=== PATIENT | female | born 1950 | race Caucasian/White ===

== ENCOUNTER → 2016-07-28 | Outpatient (CLI) | payer OTHER | LOC: BMCIMAGING 12:45 | PROVIDERS: ATTEND Internal Medicine | DX: Z12.31 Encounter for screening mammogram for malignant neoplasm of breast (principal) | CPT/HCPCS: G0202 ==

== ENCOUNTER 2017-07-28 18:09 | Emergency (ER) | payer OTHER ==
--- NOTE | 2017-07-28 18:59 | EDPHY ---
H & P Stated Complaint: fell hiking 5 days ago on river trip/l flank/back pain/doc wants cat scan Time Seen by Provider: 07/28/17 18:49 HPI/ROS: CHIEF COMPLAINT: Left flank pain HISTORY OF PRESENT ILLNESS: The patient is a 67-year-old female who fell on a hike 5 days ago. She landed on her left CVA region. She has had pain in that region ever since although it is gradually improving. Today she saw her primary doctor who recommended she come to the ER for a CT scan. She has not had any hematuria. She denies bony pain. She denies weakness or numbness. REVIEW OF SYSTEMS: Constitutional: denies: chills, fever, recent illness, recent injury EENTM: denies: blurred vision, double vision, nose congestion Respiratory: denies: cough, shortness of breath Cardiac: denies: chest pain, irregular heart rate, lightheadedness, palpitations Gastrointestinal/Abdominal: denies: abdominal pain, diarrhea, nausea, vomiting, blood streaked stools Genitourinary: denies: dysuria, frequency, hematuria, pain Musculoskeletal: See HPI Skin: denies: lesions, rash, jaundice, bruising Neurological: denies: headache, numbness, paresthesia, tingling, dizziness, weakness Hematologic/Lymphatic: denies: blood clots, easy bleeding, easy bruising Immunologic/allergic: denies: HIV/AIDS, transplant EXAM: GENERAL: Well-appearing, well-nourished and in no acute distress. HEAD: Atraumatic, normocephalic. EYES: Pupils equal round and reactive to light, extraocular movements intact, sclera anicteric, conjunctiva are normal. ENT: TMs normal, nares patent, oropharynx clear without exudates. Moist mucous membranes. NECK: Normal range of motion, supple without lymphadenopathy or JVD. LUNGS: Breath sounds clear to auscultation bilaterally and equal. No wheezes rales or rhonchi. HEART: Regular rate and rhythm without murmurs, rubs or gallops. ABDOMEN: Soft, nontender, normoactive bowel sounds. No guarding, no rebound. No masses appreciated. BACK: Mild left CVA tenderness, no bruising or swelling, no spinal tenderness, step-offs or deformities EXTREMITIES: Normal range of motion, no pitting or edema. No clubbing or cyanosis. NEUROLOGICAL: Cranial nerves II through XII grossly intact. Normal speech, normal gait. 5/5 strength, normal movement in all extremities, normal sensation PSYCH: Normal mood, normal affect. SKIN: Warm, dry, normal turgor, no visible rashes or lesions. Source: Patient Exam Limitations: No limitations - Personal History Current Tetanus/Diphtheria Vaccine: Yes - Medical/Surgical History Hx Asthma: No Hx Chronic Respiratory Disease: No Hx Diabetes: No Hx Cardiac Disease: No Hx Renal Disease: No Hx Cirrhosis: No Hx Alcoholism: No Hx HIV/AIDS: No Hx Splenectomy or Spleen Trauma: No Other PMH: denies - Family History Significant Family History: No pertinent family hx - Social History Smoking Status: Never smoked Alcohol Use: Sober Drug Use: None Constitutional: Initial Vital Signs Temperature (C) 36.7 C 07/28/17 18:15 Heart Rate 88 07/28/17 18:15 Respiratory Rate 18 07/28/17 18:15 Blood Pressure 152/96 H 07/28/17 18:15 O2 Sat (%) 97 07/28/17 18:15 O2 Delivery Mode Room Air Allergies/Adverse Reactions: No Known Allergies Allergy (Unverified 07/28/17 18:14) Home Medications: Medication Instructions Recorded LORazepam 07/28/17 Levothyroxine 07/28/17 Medical Decision Making - Diagnostics Imaging Results: Imaging Impressions Abdomen CT 07/28/17 18:56 Impression: 1. Nondisplaced left L1 through L3 and possible nondisplaced right T8 transverse process fractures. Nodular enhancement in the posterior dome of the liver, incompletely characterized on this single phase study, which could represent a hemangioma. MR abdomen, with contrast, is recommended for further evaluation. 3. Additional findings, as above. Findings discussed with Eduardo Wheeler M.D., on July 29, 2017 at 2034. Imaging: Discussed imaging studies w/ will call clerk Radiologist ED Course/Re-evaluation: 8:50 p.m. we discussed the patient's CT results. She is reassured. We discussed pain control and rest and I will have her follow up with a patient centered care specialist. She is happy with this plan and declines further workup or testing at this time. We discussed indications for returning. She is not show any signs of nerve or cord impingement. Differential Diagnosis: Partial list of the Differential diagnosis considered include but were not limited to; kidney injury, musculoskeletal pain, spinous injury and although unlikely based on the history and physical exam, I also considered nerve injury , aneurysm, hematoma. I discussed these differential diagnoses and the plan with the patient as well as the usual and expected course. The patient understands that the diagnosis is provisional and that in medicine we are not always correct and that further workup is often warranted. Usual and customary warnings were given. All of the patient's questions were answered. The patient was instructed to return to the emergency department should the symptoms at all worsen or return, otherwise to followup with the physician as we discussed. - Data Points Laboratory Results: 07/28/17 19:38 POC Hgb 15.3 gm/dL gm/dL (12.6-16.3) POC Hct 45 % % (38-47) POC Sodium 143 mEq/L mEq/L (135-145) POC Potassium 4.1 mEq/L mEq/L (3.3-5.0) POC Chloride 106 mEq/L mEq/L (97-110) POC BUN 17 mg/dL mg/dL (7-23) POC Creatinine 0.8 mg/dL mg/dL (0.6-1.0) POC Glucose 96 mg/dL mg/dL (70-100) Point of Care Test Results: Chemistry 07/28/17 19:38 POC Sodium 143 mEq/L mEq/L (135-145) POC Potassium 4.1 mEq/L mEq/L (3.3-5.0) POC Chloride 106 mEq/L mEq/L (97-110) POC BUN 17 mg/dL mg/dL (7-23) POC Creatinine 0.8 mg/dL mg/dL (0.6-1.0) POC Glucose 96 mg/dL mg/dL (70-100) ISTAT H&H 07/28/17 19:38 POC Hgb 15.3 gm/dL gm/dL (12.6-16.3) POC Hct 45 % % (38-47) Departure - Departure Disposition: Home, Routine, Self-Care Clinical Impression: Fracture of transverse process of lumbar vertebra Qualifiers: Encounter type: initial encounter Fracture type: closed Qualified Code(s): S32.009A - Unspecified fracture of unspecified lumbar vertebra, initial encounter for closed fracture Condition: Fair Instructions: Thoracolumbar Fracture (ED) Additional Instructions: You have nondisplaced fractures of the left transverse processes of the lumbar spine 1,2&3. Referrals: Anjelica Burns MD [Primary Care Provider] - As per Instructions Ila Harman MD [Medical Doctor] - As per Instructions
[2017-07-28] MEDS ORDERED: IOPAMIDOL (ISOVUE-300) 100 ML BTL ONE (19:20)
[2017-07-28 21:21] VITALS: BP 138/103
== END 2017-07-28 21:21 | disposition home or self-care (01) ==
DX: S32.019A Unspecified fracture of first lumbar vertebra, initial encounter for closed fracture (principal); W01.0XXA Fall on same level from slipping, tripping and stumbling without subsequent striking against object, initial encounter; Y99.8 Other external cause status; Y93.01 Activity, walking, marching and hiking
CPT/HCPCS: 74177; 99285; Q9967; 82435-PO; 82565-PO; 82947-PO; 84132-PO; 84295-PO; 84520-PO; 85014-PO

== ENCOUNTER → 2017-08-19 | Outpatient (CLI) | payer OTHER ==
[~2017-08-19] MED LIST: GADOBUTROL 10 ML VIAL IVP ONE
== END ==
LOC: FIMAGING 09:56
PROVIDERS: ATTEND Internal Medicine
DX: R93.2 Abnormal findings on diagnostic imaging of liver and biliary tract (principal)
CPT/HCPCS: 74183; A9585

== ENCOUNTER → 2018-04-19 | Outpatient (CLI) | payer OTHER | LOC: BMCIMAGING 09:49 | PROVIDERS: ATTEND Family Medicine | DX: S22.42XA Multiple fractures of ribs, left side, initial encounter for closed fracture (principal); M51.34 Other intervertebral disc degeneration, thoracic region; M53.84 Other specified dorsopathies, thoracic region ==